=== PATIENT | male | born 1980 | race Two or more races ===

== ENCOUNTER 2019-08-26 22:52 | Inpatient (IN) | payer MEDICAID ==
[~2019-08-26] VITALS: Ht 172.7 cm; Wt 127.0 kg
[2019-08-26 23:36] LABS: Basophils # (auto) 0.1 10 ^3/uL (0-0.2); Basophils % (auto) 0.5 % (0.0-2.0); Eosinophils # (auto) 0 10 ^3/uL (0-0.8); Eosinophils % (auto) 0.1 % (0.0-7.0); Hematocrit 51.8 % (41.0-53.0); Hemoglobin 18.1 g/dL (13.5-17.5); Lymphocytes # (auto) 2.2 10 ^3/uL (0.4-5.4); Lymphocytes % (auto) 14.9 % (10.0-50.0); Mean Corpuscular Hemoglobin 31.4 pg (28.0-32.0); Mean Corpuscular Hgb Conc. 34.9 g/dL (32.0-36.0); Mean Corpuscular Volume 89.8 fL (80.0-100.0); Monocytes # (auto) 1.5 10 ^3/uL (0-1.3); Monocytes % (auto) 10.5 % (0.0-12.0); Neutrophils # (auto) 10.7 10 ^3/uL (1.6-8.6); Nucleated Red Blood Cells % 0.1 %; Platelet Count (auto) 362 10^3/uL (140-450); Red Blood Cells 5.77 10^6/uL (4.5-5.90); Red Cell Distribution Width 13.4 % (11.8-14.3); White Blood Cell 14.5 10^3/uL (4.4-10.8)
[2019-08-26 23:54] LABS: Albumin 4.4 g/dL (3.4-5.0); Anion Gap 16 (5-15); BUN/Creatinine Ratio 17.4; Blood Urea Nitrogen 41 mg/dL (7-18); Calcium 9.7 mg/dL (8.5-10.1); Carbon Dioxide 24 mmol/L (21-32); Chloride 88 mmol/L (98-107); GFR African American 40 mL/min; GFR Non-African American 33 mL/min; Glucose 115 mg/dL (74-106); Potassium 3.6 mmol/L (3.5-5.1); Sodium 128 mmol/L (136-145)
[2019-08-26 23:59] LABS: Alanine Aminotransferase 30 U/L (16-61); Alkaline Phosphatase 128 U/L (45-117); Aspartate Aminotransferase 27 U/L (15-37); Bilirubin, Total 0.5 mg/dL (0.2-1.0); Total Protein 10.2 g/dL (6.4-8.2)
[2019-08-27] MEDS ORDERED: SODIUM CHLORIDE 0.9% 1,000 ML IV ONE
[2019-08-27] MEDS ORDERED: MORPHINE SULFATE 4 MG/ML SYR/VIAL IV ONE (00:15)
[2019-08-27] MEDS ORDERED: ONDANSETRON HCL 4 MG/2 ML VIAL IV ONE (00:15)
[2019-08-27 00:37] LABS: Amylase 54 U/L (25-115); Lipase 67 U/L (73-393)
[2019-08-27] MEDS ORDERED: ACETAMINOPHEN 325 MG TAB PO PRN (05:15)
[2019-08-27] MEDS ORDERED: TEMAZEPAM 15 MG CAP PO PRN (05:15)
[2019-08-27] MEDS ORDERED: MORPHINE SULFATE 4 MG/ML SYR/VIAL IV PRN (05:15)
[2019-08-27] MEDS ORDERED: ONDANSETRON HCL 4 MG/2 ML VIAL IV PRN (05:15)
[2019-08-27] MEDS: SODIUM CHLORIDE 0.9% 1,000 ML IV SCH ×2 (05:21→08:50)
[2019-08-27] MEDS: HYDROcodone-ACET 5/325MG TAB PO PRN ×2 (06:41→11:04)
[2019-08-27] MEDS: metroNIDAZOLE 500MG/100ML 100 ML IV SCH ×2 (07:35→14:00)
[2019-08-27 09:00] VITALS: BP 134/68
[2019-08-27 09:10] LABS: Potassium 3.4 mmol/L (3.5-5.1)
[2019-08-27 09:12] LABS: BUN/Creatinine Ratio 22.9
[2019-08-27] MEDS ORDERED: PANTOPRAZOLE 40 MG TAB PO SCH (10:00)
[2019-08-27] MEDS ORDERED: POTASSIUM CHL 20 Meq TABLET PO ONE (10:30)
[2019-08-27 13:00] VITALS: BP 143/75
[2019-08-27 17:00] VITALS: BP 145/79
[2019-08-30 13:53] LABS: Hepatitis A Ab IgM Negative; Hepatitis C Antibody Negative (Negative)
[2019-08-31 10:02] LABS: Hepatitis B Surface Antigen Negative (Negative)
[2019-08-31 10:11] LABS: Hepatitis B Core IgM Negative
== END 2019-08-27 17:35 | disposition home or self-care (01) | DRG 249 ==
LOC: ER 22:54 → OVERFLOW 22:55 → CENTRAL 08-27 06:00
PROVIDERS: ADMIT Nurse Practitioner; ATTEND Family Medicine
DX: E86.0 Dehydration (principal); N17.9 Acute kidney failure, unspecified; E87.1 Hypo-osmolality and hyponatremia; Z68.41 Body mass index [BMI] 40.0-44.9, adult; K59.00 Constipation, unspecified; K29.00 Acute gastritis without bleeding; K52.9 Noninfective gastroenteritis and colitis, unspecified; K40.90 Unilateral inguinal hernia, without obstruction or gangrene, not specified as recurrent; E66.01 Morbid (severe) obesity due to excess calories; G47.00 Insomnia, unspecified; F12.10 Cannabis abuse, uncomplicated; K76.0 Fatty (change of) liver, not elsewhere classified; Z79.899 Other long term (current) drug therapy
CPT/HCPCS: 36415; 70450; 71045; 74176; 76705; 76775; 80048; 80053; 80074; 82150; 83690; 84484; 85025; 85652; 86703; 93005; G0378; J2405; J3490

== ENCOUNTER 2019-09-04 09:38 | Emergency (ER) | payer SELFPAY ==
[~2019-09-04] VITALS: Ht 172.7 cm; Wt 127.0 kg
[2019-09-04] MEDS ORDERED: SODIUM CHLORIDE 0.9% 1,000 ML IV ONE (10:07)
[2019-09-04] MEDS ORDERED: ONDANSETRON HCL 4 MG/2 ML VIAL IV ONE (10:15)
[2019-09-04 10:36] LABS: Basophils # (auto) 0 10 ^3/uL (0-0.2); Eosinophils # (auto) 0 10 ^3/uL (0-0.8); Hemoglobin 17.8 g/dL (13.5-17.5); Nucleated Red Blood Cells % 0.1 %
[2019-09-04 10:38] LABS: Basophils % (auto) 0.5 % (0.0-2.0); Eosinophils % (auto) 0.4 % (0.0-7.0); Hematocrit 52.4 % (41.0-53.0); Lymphocytes # (auto) 2.3 10 ^3/uL (0.4-5.4); Lymphocytes % (auto) 23.8 % (10.0-50.0); Mean Corpuscular Hemoglobin 30.6 pg (28.0-32.0); Mean Corpuscular Hgb Conc. 34.1 g/dL (32.0-36.0); Mean Corpuscular Volume 89.9 fL (80.0-100.0); Monocytes # (auto) 1.4 10 ^3/uL (0-1.3); Monocytes % (auto) 14.8 % (0.0-12.0); Neutrophils # (auto) 5.8 10 ^3/uL (1.6-8.6); Neutrophils % (auto) 60.5 % (37.0-80.0); Platelet Count (auto) 442 10^3/uL (140-450); Red Blood Cells 5.83 10^6/uL (4.5-5.90); Red Cell Distribution Width 13.3 % (11.8-14.3); White Blood Cell 9.6 10^3/uL (4.4-10.8)
[2019-09-04 10:49] LABS: Calcium 9.8 mg/dL (8.5-10.1)
[2019-09-04 10:55] LABS: BUN/Creatinine Ratio 17.2; Bilirubin, Total 0.6 mg/dL (0.2-1.0); Total Protein 9.7 g/dL (6.4-8.2)
[2019-09-04 11:05] LABS: Potassium 2.9 mmol/L (3.5-5.1)
[2019-09-04] MEDS ORDERED: POTASSIUM EFFERVESENT TAB 25 MEQ PO ONE (11:15)
[2019-09-04 14:37] LABS: Urine Bacteria NONE SEEN /hpf (None Seen); Urine Blood Negative /uL (Negative); Urine Hyaline Cast FEW /lpf (0 - 2); Urine Mucus FEW (None Seen); Urine WBC 11 /hpf (0 - 3)
[2019-09-04 14:52] LABS: Amphetamine Screen, Urine NEGATIVE (NEGATIVE); Barbiturate Scree,Urine NEGATIVE (NEGATIVE); Benzodiazephine Screen, Urine NEGATIVE (NEGATIVE); Cannabinoid Screen, Urine POSITIVE (NEGATIVE); Cocaine Screen, Urine NEGATIVE (NEGATIVE); Opiate Scree,Urine NEGATIVE (NEGATIVE); Phencyclidine Screen, Urine NEGATIVE (NEGATIVE)
[2019-09-04 15:58] VITALS: BP 137/95
== END 2019-09-04 16:12 | disposition home or self-care (01) ==
LOC: ER 09:38
DX: E87.6 Hypokalemia (principal); N18.3 Chronic kidney disease, stage 3 (moderate); E87.1 Hypo-osmolality and hyponatremia; N39.0 Urinary tract infection, site not specified; R53.1 Weakness
CPT/HCPCS: 36415; 71046; 80053; 80307; 81001; 83735; 84443; 85025; 85379; 93005; 96361; 96365; 99285; J7030

== ENCOUNTER 2019-10-02 14:13 | Inpatient (IN) | payer MEDICAID, OTHER ==
[~2019-10-02] VITALS: Ht 170.2 cm; Wt 115.2 kg
[2019-10-02 15:22] LABS: BUN/Creatinine Ratio 8.2; Calcium 8.9 mg/dL (8.5-10.1); Potassium 4.2 mmol/L (3.5-5.1)
[2019-10-02 15:51] LABS: Basophils # (auto) 0.1 10 ^3/uL (0-0.2); Basophils % (auto) 1.1 % (0.0-2.0); Eosinophils # (auto) 0 10 ^3/uL (0-0.8); Eosinophils % (auto) 0.3 % (0.0-7.0); Hematocrit 39.1 % (41.0-53.0); Hemoglobin 12.5 g/dL (13.5-17.5); Lymphocytes % (auto) 24.6 % (10.0-50.0); Mean Corpuscular Hemoglobin 30.2 pg (28.0-32.0); Mean Corpuscular Hgb Conc. 32.1 g/dL (32.0-36.0); Mean Corpuscular Volume 94.3 fL (80.0-100.0); Monocytes # (auto) 0.6 10 ^3/uL (0-1.3); Monocytes % (auto) 7.1 % (0.0-12.0); Neutrophils # (auto) 5.5 10 ^3/uL (1.6-8.6); Neutrophils % (auto) 66.9 % (37.0-80.0); Platelet Count (auto) 290 10^3/uL (140-450); Red Blood Cells 4.15 10^6/uL (4.5-5.90); Red Cell Distribution Width 14.8 % (11.8-14.3); White Blood Cell 8.2 10^3/uL (4.4-10.8)
[2019-10-02 16:58] LABS: Urine Bacteria NONE SEEN /hpf (None Seen); Urine Blood 1+ /uL (Negative); Urine Mucus FEW (None Seen); Urine Specific Gravity 1.012 (1.001-1.035); Urine WBC 2 /hpf (0 - 3)
[2019-10-02 19:32] LABS: Albumin 3.1 g/dL (3.4-5.0); Bilirubin, Total 0.3 mg/dL (0.2-1.0); Total Protein 7.2 g/dL (6.4-8.2)
[2019-10-02] MEDS ORDERED: FUROSEMIDE 20 MG/2 ML VIAL IV ONE (21:45)
[2019-10-02] MEDS ORDERED: TEMAZEPAM 15 MG CAP PO PRN (21:45)
[2019-10-02] MEDS ORDERED: ONDANSETRON HCL 4 MG/2 ML VIAL IV PRN (21:45)
[2019-10-02] MEDS ORDERED: ACETAMINOPHEN 325 MG TAB PO PRN (21:45)
[2019-10-02] MEDS: FAMOTIDINE 20 MG TAB PO SCH (22:00)
[2019-10-02 22:53] LABS: Cholesterol 225 mg/dL (< 200)
[2019-10-02 22:56] LABS: HDL Cholesterol 57 mg/dL (40-59); LDL Cholesterol 165 mg/dL (< 100); Triglycerides 92 mg/dL (< 150)
[2019-10-02 23:00] VITALS: BP 137/87
[2019-10-02 23:40] VITALS: BP 126/78
[2019-10-03 05:00] VITALS: BP 120/77
[2019-10-03 06:04] LABS: Basophils # (auto) 0 10 ^3/uL (0-0.2); Basophils % (auto) 0.6 % (0.0-2.0); Eosinophils # (auto) 0.1 10 ^3/uL (0-0.8); Eosinophils % (auto) 0.8 % (0.0-7.0); Hematocrit 36.7 % (41.0-53.0); Hemoglobin 12.1 g/dL (13.5-17.5); Mean Corpuscular Hemoglobin 31.2 pg (28.0-32.0); Mean Corpuscular Volume 94.5 fL (80.0-100.0); Monocytes # (auto) 0.6 10 ^3/uL (0-1.3); Neutrophils # (auto) 4.1 10 ^3/uL (1.6-8.6); Neutrophils % (auto) 60.6 % (37.0-80.0); Nucleated Red Blood Cells % 0.1 %; Platelet Count (auto) 258 10^3/uL (140-450); Red Blood Cells 3.89 10^6/uL (4.5-5.90); Red Cell Distribution Width 14.7 % (11.8-14.3); White Blood Cell 6.8 10^3/uL (4.4-10.8)
[2019-10-03 06:26] LABS: Potassium 3.8 mmol/L (3.5-5.1)
[2019-10-03 06:30] LABS: BUN/Creatinine Ratio 5.8; Calcium 8.5 mg/dL (8.5-10.1)
[2019-10-03 08:53] VITALS: BP 122/78
[2019-10-03] MEDS: ASPirin 81 mg TAB PO SCH (10:00)
[2019-10-03] MEDS: FAMOTIDINE 20 MG TAB PO SCH ×2 (10:01→23:09)
[2019-10-03] MEDS: FUROSEMIDE 20 MG TAB PO SCH (10:01)
[2019-10-03 12:36] VITALS: BP 134/92
[2019-10-03 16:52] VITALS: BP 128/83
[2019-10-03 22:35] VITALS: BP 138/87
[2019-10-03] MEDS: ATORVASTATIN 20 MG TAB PO SCH (23:09)
[2019-10-04 05:21] VITALS: BP 131/80
[2019-10-04 06:10] LABS: Basophils # (auto) 0.1 10 ^3/uL (0-0.2); Basophils % (auto) 0.8 % (0.0-2.0); Eosinophils # (auto) 0.1 10 ^3/uL (0-0.8); Hematocrit 38.5 % (41.0-53.0); Hemoglobin 12.9 g/dL (13.5-17.5); Lymphocytes # (auto) 1.8 10 ^3/uL (0.4-5.4); Lymphocytes % (auto) 27.4 % (10.0-50.0); Mean Corpuscular Hemoglobin 31.3 pg (28.0-32.0); Mean Corpuscular Hgb Conc. 33.5 g/dL (32.0-36.0); Mean Corpuscular Volume 93.5 fL (80.0-100.0); Monocytes # (auto) 0.6 10 ^3/uL (0-1.3); Monocytes % (auto) 8.6 % (0.0-12.0); Neutrophils # (auto) 4.1 10 ^3/uL (1.6-8.6); Neutrophils % (auto) 62.2 % (37.0-80.0); Platelet Count (auto) 252 10^3/uL (140-450); Red Blood Cells 4.12 10^6/uL (4.5-5.90); Red Cell Distribution Width 14.3 % (11.8-14.3); White Blood Cell 6.5 10^3/uL (4.4-10.8)
[2019-10-04 06:30] LABS: Anion Gap 5 (5-15); Calcium 8.4 mg/dL (8.5-10.1); Carbon Dioxide 26 mmol/L (21-32); Chloride 108 mmol/L (98-107); Glucose 87 mg/dL (74-106); Potassium 3.8 mmol/L (3.5-5.1); Sodium 139 mmol/L (136-145)
[2019-10-04 06:35] LABS: BUN/Creatinine Ratio 10.4; Blood Urea Nitrogen 8 mg/dL (7-18); GFR African American 145 mL/min; GFR Non-African American 120 mL/min
[2019-10-04 09:00] VITALS: BP 133/89
[2019-10-04] MEDS: ASPirin 81 mg TAB PO SCH (09:12)
[2019-10-04] MEDS: FUROSEMIDE 20 MG TAB PO SCH (09:13)
[2019-10-04] MEDS: FAMOTIDINE 20 MG TAB PO SCH ×2 (09:13→21:28)
[2019-10-04 13:00] VITALS: BP 135/87
[2019-10-04 17:00] VITALS: BP 126/88
[2019-10-04] MEDS: ATORVASTATIN 20 MG TAB PO SCH (21:28)
[2019-10-04 23:32] VITALS: BP 139/93
[2019-10-05 05:23] VITALS: BP 121/75
[2019-10-05 06:30] LABS: Basophils # (auto) 0 10 ^3/uL (0-0.2); Basophils % (auto) 0.5 % (0.0-2.0); Eosinophils # (auto) 0 10 ^3/uL (0-0.8); Eosinophils % (auto) 0.7 % (0.0-7.0); Lymphocytes # (auto) 1.9 10 ^3/uL (0.4-5.4); Lymphocytes % (auto) 26.9 % (10.0-50.0); Mean Corpuscular Hemoglobin 31.3 pg (28.0-32.0); Mean Corpuscular Hgb Conc. 33.3 g/dL (32.0-36.0); Monocytes # (auto) 0.7 10 ^3/uL (0-1.3); Monocytes % (auto) 9.9 % (0.0-12.0); Neutrophils # (auto) 4.3 10 ^3/uL (1.6-8.6); Nucleated Red Blood Cells % 0.1 %; Platelet Count (auto) 283 10^3/uL (140-450); Red Blood Cells 4.47 10^6/uL (4.5-5.90); Red Cell Distribution Width 14.5 % (11.8-14.3); White Blood Cell 6.9 10^3/uL (4.4-10.8)
[2019-10-05 06:38] LABS: BUN/Creatinine Ratio 12.2
[2019-10-05 08:51] VITALS: BP 128/83
[2019-10-05] MEDS: ASPirin 81 mg TAB PO SCH (10:01)
[2019-10-05] MEDS: FAMOTIDINE 20 MG TAB PO SCH (10:01)
[2019-10-05] MEDS: FUROSEMIDE 20 MG TAB PO SCH (10:02)
[2019-10-05 12:37] VITALS: BP 129/88
[2019-10-05 16:55] VITALS: BP 123/83
[2019-10-05 17:07] VITALS: BP 123/83
== END 2019-10-05 18:20 | disposition home or self-care (01) | DRG 194 ==
LOC: ER 14:13 → TELE 14:14 → TELE-WESTW 23:09
PROVIDERS: ADMIT Nurse Practitioner; ATTEND Internal Medicine
DX: I50.31 Acute diastolic (congestive) heart failure (principal); E44.0 Moderate protein-calorie malnutrition; E66.01 Morbid (severe) obesity due to excess calories; E78.00 Pure hypercholesterolemia, unspecified; E78.5 Hyperlipidemia, unspecified; D63.8 Anemia in other chronic diseases classified elsewhere; Z83.0 Family history of human immunodeficiency virus [HIV] disease; Z91.81 History of falling; Z68.41 Body mass index [BMI] 40.0-44.9, adult
CPT/HCPCS: 36415; 70450; 71046; 80048; 80053; 80061; 81001; 83880; 84443; 84484; 85025; 87081; 93005; 93306; 93970; 96374; G0378

== ENCOUNTER 2019-11-23 13:02 | Inpatient (IN) | payer MEDICAID ==
[~2019-11-23] VITALS: Ht 172.7 cm; Wt 117.6 kg
[2019-11-23 13:47] LABS: Eosinophils # (auto) 0 10 ^3/uL (0-0.8); Lymphocytes # (auto) 2.6 10 ^3/uL (0.4-5.4); Mean Corpuscular Volume 94.9 fL (80.0-100.0)
[2019-11-23 13:49] LABS: Basophils # (auto) 0.1 10 ^3/uL (0-0.2); Basophils % (auto) 0.6 % (0.0-2.0); Eosinophils % (auto) 0.1 % (0.0-7.0); Hematocrit 53.7 % (41.0-53.0); Hemoglobin 17.7 g/dL (13.5-17.5); Lymphocytes % (auto) 20.8 % (10.0-50.0); Mean Corpuscular Hemoglobin 31.3 pg (28.0-32.0); Monocytes # (auto) 1.4 10 ^3/uL (0-1.3); Monocytes % (auto) 11.2 % (0.0-12.0); Neutrophils # (auto) 8.5 10 ^3/uL (1.6-8.6); Neutrophils % (auto) 67.3 % (37.0-80.0); Platelet Count (auto) 423 10^3/uL (140-450); Red Blood Cells 5.66 10^6/uL (4.5-5.90); Red Cell Distribution Width 14.2 % (11.8-14.3); White Blood Cell 12.6 10^3/uL (4.4-10.8)
[2019-11-23 14:12] LABS: Albumin 4.5 g/dL (3.4-5.0); Anion Gap 9 (5-15); Blood Urea Nitrogen 25 mg/dL (7-18); Calcium 9.8 mg/dL (8.5-10.1); Carbon Dioxide 28 mmol/L (21-32); Chloride 95 mmol/L (98-107); Glucose 110 mg/dL (74-106); Potassium 3.4 mmol/L (3.5-5.1); Sodium 132 mmol/L (136-145)
[2019-11-23 14:18] LABS: Alanine Aminotransferase 25 U/L (16-61); Alkaline Phosphatase 119 U/L (45-117); Aspartate Aminotransferase 18 U/L (15-37); BUN/Creatinine Ratio 12.4; Bilirubin, Total 0.6 mg/dL (0.2-1.0); GFR African American 48 mL/min; GFR Non-African American 39 mL/min; Total Protein 9.8 g/dL (6.4-8.2)
[2019-11-23] MEDS ORDERED: ONDANSETRON HCL 4 MG/2 ML VIAL ONE (16:06)
[2019-11-23] MEDS ORDERED: ASPirin-EC 81 mg tab PO ONE (16:07)
[2019-11-23] MEDS ORDERED: ASPirin 81 mg TAB PO ONE (16:15)
[2019-11-23] MEDS ORDERED: ONDANSETRON HCL 4 MG/2 ML VIAL IV ONE (16:15)
[2019-11-23] MEDS ORDERED: NITROGLYCERIN 0.4 MG SL TAB SL ONE (16:15)
[2019-11-23] MEDS ORDERED: PROMETHAZINE HCL 25 MG/ML 1ML ONE (17:06)
[2019-11-23] MEDS ORDERED: PROMETHAZINE HCL 25 MG/ML 1ML IV ONE (17:15)
[2019-11-23] MEDS ORDERED: PANTOPRAZOLE 40 MG/10 ML VIAL INJ IV ONE (17:15)
[2019-11-23] MEDS ORDERED: NITROGLYCERIN 0.4 MG SL TAB SL PRN ×2 (18:15→19:45)
[2019-11-23] MEDS ORDERED: MORPHINE SULF INJ 2 MG/ML SYRINGE 1ML IV PRN ×2 (18:15→19:45)
[2019-11-23] MEDS ORDERED: SODIUM CHLORIDE 0.9% 1,000 ML IV SCH (19:38)
[2019-11-23] MEDS ORDERED: ACETAMINOPHEN 325 MG TAB PO PRN (19:45)
[2019-11-23] MEDS ORDERED: DOCUSATE SOD 100 MG CAP PO PRN (19:45)
[2019-11-23] MEDS ORDERED: ALUM & MAG HYDROX-SIMETH LIQ(MAALOX) 30 ML PO PRN (19:45)
[2019-11-23] MEDS ORDERED: HYDROcodone-ACET 5/325MG TAB PO PRN (19:45)
[2019-11-23] MEDS ORDERED: FUROSEMIDE 20 MG/2 ML VIAL IV ONE (20:00)
--- NOTE | 2019-11-23 20:05 | NUR ---
Telemetry admit from ER RAVIROBIN HEIN admitted to Telemetry unit; no SBAR received. Patient oriented by ANDERSON SCOTT, primary RN, to unit, room, bed, and unit policies regarding patient care and visiting hours. Patient now on continuous telemetry monitoring, tele box #52 and telemetry reading on arrival to unit is 110. Patient placed on bedside oxygen, weighed by bedscale and encouraged to call if he needs something. All questions and concerns addressed, patient verbalized understanding. Pain is 8/20 described as burning in chest and abd as has been all day. Able to ZABALA. Bed low; nurse call light within pt's reach.
[2019-11-23] MEDS: ENOXAPARIN SOD 40 MG/0.4 ML SYRINGE SC SCH (20:14)
[2019-11-23] MEDS: ONDANSETRON HCL 4 MG/2 ML VIAL IV PRN (20:40)
[2019-11-23] MEDS: MORPHINE SULF INJ 2 MG/ML SYRINGE 1ML IV PRN (20:45)
[2019-11-23] MEDS: SOD CHL 0.9%/ KCL 20MEQ 1,000 ML IV SCH (21:45)
[2019-11-23 22:00] VITALS: BP 142/99
[2019-11-23] MEDS: dilTIAZem HCL 60 MG TAB PO SCH (22:00)
[2019-11-23] MEDS: FAMOTIDINE (10MG/ML) 2ML VL IV SCH (22:00)
[2019-11-23] MEDS: ATORVASTATIN 20 MG TAB PO SCH (22:00)
[2019-11-23 22:28] LABS: Cholesterol 186 mg/dL (< 200); HDL Cholesterol 53 mg/dL (40-59); LDL Cholesterol 127 mg/dL (< 100); Triglycerides 114 mg/dL (< 150)
[2019-11-24 00:09] VITALS: BP 131/92
[2019-11-24] MEDS: ONDANSETRON HCL 4 MG/2 ML VIAL IV PRN ×2 (00:42→05:50)
[2019-11-24 05:04] VITALS: BP 145/95
[2019-11-24] MEDS: FUROSEMIDE 20 MG/2 ML VIAL IV SCH ×2 (06:00→17:20)
[2019-11-24] MEDS: ISOSORBIDE DINITRATE 10 MG TAB PO SCH ×3 (06:00→17:23)
[2019-11-24] MEDS: dilTIAZem HCL 60 MG TAB PO SCH ×3 (06:00→21:54)
[2019-11-24 06:18] LABS: Basophils # (auto) 0 10 ^3/uL (0-0.2); Basophils % (auto) 0.3 % (0.0-2.0); Eosinophils # (auto) 0 10 ^3/uL (0-0.8); Hematocrit 53.4 % (41.0-53.0); Hemoglobin 17.7 g/dL (13.5-17.5); Lymphocytes # (auto) 1.6 10 ^3/uL (0.4-5.4); Lymphocytes % (auto) 14.3 % (10.0-50.0); Mean Corpuscular Hemoglobin 31.3 pg (28.0-32.0); Mean Corpuscular Hgb Conc. 33.1 g/dL (32.0-36.0); Mean Corpuscular Volume 94.5 fL (80.0-100.0); Monocytes # (auto) 1.3 10 ^3/uL (0-1.3); Monocytes % (auto) 11.5 % (0.0-12.0); Neutrophils % (auto) 73.9 % (37.0-80.0); Nucleated Red Blood Cells % 0.3 %; Platelet Count (auto) 373 10^3/uL (140-450); Red Blood Cells 5.65 10^6/uL (4.5-5.90); Red Cell Distribution Width 14.3 % (11.8-14.3); White Blood Cell 10.9 10^3/uL (4.4-10.8)
[2019-11-24 06:38] LABS: INR 1.01 (0.9-1.15); Partial Thromboplastin Time 29.5 sec (23.64-32.05)
[2019-11-24 06:40] LABS: Chloride 98 mmol/L (98-107); Potassium 3.1 mmol/L (3.5-5.1); Sodium 134 mmol/L (136-145)
[2019-11-24 06:47] LABS: Alanine Aminotransferase 24 U/L (16-61); Albumin 4.1 g/dL (3.4-5.0); Alkaline Phosphatase 115 U/L (45-117); Anion Gap 8 (5-15); Aspartate Aminotransferase 16 U/L (15-37); BUN/Creatinine Ratio 17.1; Bilirubin, Total 0.7 mg/dL (0.2-1.0); Blood Urea Nitrogen 25 mg/dL (7-18); CRP High Sensitivity 0.27 mg/dL (< 0.3); Calcium 9.5 mg/dL (8.5-10.1); Carbon Dioxide 28 mmol/L (21-32); GFR African American 69 mL/min; GFR Non-African American 57 mL/min; Glucose 114 mg/dL (74-106); Magnesium 2.5 mg/dL (1.6-2.6); Phosphorus 4.7 mg/dL (2.5-4.90); Total Protein 9.4 g/dL (6.4-8.2); Uric Acid 10.8 mg/dL (3.5-7.2)
--- NOTE | 2019-11-24 07:30 | NUR ---
Opening Shift Note Assumed care of patient, awake and alert. No S/S of distress/SOB or pain. Bed is locked and in lowest position and call light is within reach. Instructed on POC and to call for assist PRN, and patient verbalized understanding. Will continue to monitor for changes Q1hr and PRN.
[2019-11-24] MEDS: SOD CHL 0.9%/ KCL 20MEQ 1,000 ML IV SCH ×2 (07:45→17:20)
[2019-11-24] MEDS: FAMOTIDINE (10MG/ML) 2ML VL IV SCH ×2 (08:59→21:45)
[2019-11-24 10:00] VITALS: BP 133/72
[2019-11-24] MEDS: SUCRALFATE 1 GM/10 ML ORAL SUSP PO SCH ×3 (11:30→21:48)
[2019-11-24 13:00] VITALS: BP 136/82
[2019-11-24] MEDS: MORPHINE SULF INJ 2 MG/ML SYRINGE 1ML IV PRN (15:30)
[2019-11-24 16:58] VITALS: BP 117/79
[2019-11-24] MEDS: ENOXAPARIN SOD 40 MG/0.4 ML SYRINGE SC SCH (17:23)
--- NOTE | 2019-11-24 19:00 | NUR ---
Endorsed care to JOSEE BERRY, Alice.
--- NOTE | 2019-11-24 19:30 | NUR ---
Opening Shift Note Assumed care of patient, awake and alert but resting quietly in bed in low position. HOB in semi-Alvarenga's Nurse call light within pt reach. No S/S of distress/SOB or pain. Instructed on POC and to call for assist PRN, will continue to monitor for changes Q1hr and PRN.
[2019-11-24] MEDS: ATORVASTATIN 20 MG TAB PO SCH (21:55)
[2019-11-24] MEDS: LORazepam 0.5 MG TAB PO PRN ×2 (21:56)
[2019-11-24 22:07] VITALS: BP 117/82
--- NOTE | 2019-11-24 22:25 | NUR ---
Pt talking with this RN re. hopes to learn what is causing his pain and nausea and in getting tx/cure started or accomplished. Pt speaks of missing 3 mo. old girl, his first born.
[2019-11-25 05:00] VITALS: BP 135/91
[2019-11-25 06:09] LABS: Calcium 9.2 mg/dL (8.5-10.1)
[2019-11-25 06:14] LABS: Potassium 2.7 mmol/L (3.5-5.1)
--- NOTE | 2019-11-25 06:21 | NUR ---
0600 critical potassium result received via Nidhi Castelan, lab; potassium level 2.7. Hospitalist paged. electrolog operator not answering until 3rd call with extensive ringing, > 10 rings.
[2019-11-25] MEDS: dilTIAZem HCL 60 MG TAB PO SCH ×3 (06:27→21:38)
[2019-11-25] MEDS: SUCRALFATE 1 GM/10 ML ORAL SUSP PO SCH ×4 (06:28→21:38)
[2019-11-25] MEDS: ISOSORBIDE DINITRATE 10 MG TAB PO SCH ×3 (06:28→17:36)
[2019-11-25] MEDS: ONDANSETRON HCL 4 MG/2 ML VIAL IV PRN (06:39)
--- NOTE | 2019-11-25 07:10 | NUR ---
No answer from paging hospitalist; endorsing to day RN.
--- NOTE | 2019-11-25 07:30 | NUR ---
Opening Shift Note Assumed care of patient, awake and alert. No S/S of distress/SOB or pain. Instructed on POC and to call for assist PRN, and patient verbalized understanding. Will continue to monitor for changes Q1hr and PRN.
[2019-11-25 09:00] VITALS: BP 141/78
[2019-11-25] MEDS: FAMOTIDINE (10MG/ML) 2ML VL IV SCH ×2 (10:00→21:39)
--- NOTE | 2019-11-25 10:00 | NUR ---
Dr. René Serrano, Coordinator [employer], cleared patient for EGD procedure tomorrow morning.
[2019-11-25] MEDS: MORPHINE SULF INJ 2 MG/ML SYRINGE 1ML IV PRN (13:03)
[2019-11-25 13:11] VITALS: BP 136/72
[2019-11-25 16:32] VITALS: BP 141/87
[2019-11-25] MEDS ORDERED: POTASSIUM EFFERVESENT TAB 25 MEQ PO ONE (17:30)
[2019-11-25] MEDS ORDERED: POTASSIUM CHL 20 Meq TABLET PO ONE (17:30)
[2019-11-25] MEDS: ENOXAPARIN SOD 40 MG/0.4 ML SYRINGE SC SCH (17:36)
--- NOTE | 2019-11-25 19:35 | NUR ---
Opening Shift Note Assumed care of patient, awake and alert. No S/S of distress/SOB noted. Instructed on POC and to call for assist PRN, and patient verbalized understanding. Bed is in lowest locked position with bed rails up x2 and call light is within reach of the patient.
[2019-11-25] MEDS: LORazepam 0.5 MG TAB PO PRN (20:16)
[2019-11-25] MEDS: ATORVASTATIN 20 MG TAB PO SCH (21:38)
[2019-11-25 22:00] VITALS: BP 130/86
[2019-11-25 22:48] LABS: Urine Bacteria NONE SEEN /hpf (None Seen); Urine Blood Negative /uL (Negative); Urine Mucus FEW (None Seen); Urine Specific Gravity 1.029 (1.001-1.035); Urine WBC 9 /hpf (0 - 3)
[2019-11-25 22:53] LABS: Alcohol, Urine < 3.0 mg/dL (0-10); Amphetamine Screen, Urine NEGATIVE (NEGATIVE); Barbiturate Scree,Urine NEGATIVE (NEGATIVE); Benzodiazephine Screen, Urine NEGATIVE (NEGATIVE); Cannabinoid Screen, Urine POSITIVE (NEGATIVE); Cocaine Screen, Urine NEGATIVE (NEGATIVE); Opiate Scree,Urine POSITIVE (NEGATIVE); Phencyclidine Screen, Urine NEGATIVE (NEGATIVE)
--- NOTE | 2019-11-26 04:20 | NUR ---
RECEIVED REPORT ON PATIENT AT 0412. PATIENT SCHEDULED FOR EGD TODAY. CONSENT SIGNED AND PREOP CHECK LIST COMPLETED ALL ON FILE PATIENT SLEEPING AT THIS TIME.
--- NOTE | 2019-11-26 04:34 | NUR ---
Report given and care endorsed to Andrew TRIPP.
[2019-11-26 05:00] VITALS: BP 136/87
[2019-11-26] MEDS: ISOSORBIDE DINITRATE 10 MG TAB PO SCH ×3 (05:33→17:45)
[2019-11-26] MEDS: dilTIAZem HCL 60 MG TAB PO SCH ×3 (05:33→21:36)
[2019-11-26] MEDS: SUCRALFATE 1 GM/10 ML ORAL SUSP PO SCH ×4 (05:34→21:35)
[2019-11-26 06:25] LABS: BUN/Creatinine Ratio 18.7
[2019-11-26 06:30] LABS: Potassium 2.9 mmol/L (3.5-5.1)
--- NOTE | 2019-11-26 06:36 | NUR ---
0630. CRITICAL LAB VALUE CALLED: POTASSIUM 2.9. HOSPITALIST PAGED. HOSPITALIST CALLED BACK AND ORDERED POTASSIUM CHLORIDE 40MEQ PO ONE DOSE.
[2019-11-26] MEDS ORDERED: POTASSIUM CHL 20 Meq TABLET PO ONE ×2 (06:45→09:30)
--- NOTE | 2019-11-26 07:00 | NUR ---
Opening Shift Note Received report on the patient. Awake lying in bed. Patient shows no signs of distress at this time. Discussed plan of care with the patient. Bed in lowest position, side rails up x2, and call light is within reach.
[2019-11-26 09:00] VITALS: BP 125/84
[2019-11-26] MEDS ORDERED: LIDOCAINE VISCOUS 2% 15ML UD ONE (09:13)
[2019-11-26] MEDS ORDERED: SODIUM CHLORIDE LOCK 10 ML ONE (09:13)
[2019-11-26] MEDS ORDERED: POTASSIUM EFFERVESENT TAB 25 MEQ PO ONE (09:30)
[2019-11-26] MEDS: FAMOTIDINE (10MG/ML) 2ML VL IV SCH ×2 (10:00→21:35)
--- NOTE | 2019-11-26 11:51 | NUR ---
Dr Lemos at bedside. No new orders.
[2019-11-26 12:58] VITALS: BP 137/90
--- NOTE | 2019-11-26 13:41 | NUR ---
Patient down to OR. No signs of distress at this time.
[2019-11-26] MEDS: MIDAZOLAM HCL 5 MG/ML-1ML VIAL ONE ×4 (15:08→15:17)
[2019-11-26] MEDS: fentaNYL CITRATE 100 MCG/2 ML VL ONE ×3 (15:08→15:13)
[2019-11-26] MEDS: diphenhdrAMINE HCL 50 MG/1 ML VL ONE ×2 (15:10→15:12)
--- NOTE | 2019-11-26 16:04 | NUR ---
Patient back from OR. Patient A&O 4. Patient shows no signs of distress at this time.
[2019-11-26 16:29] VITALS: BP 136/70
[2019-11-26] MEDS: ENOXAPARIN SOD 40 MG/0.4 ML SYRINGE SC SCH (17:45)
--- NOTE | 2019-11-26 19:17 | NUR ---
Opening Shift Note Assumed care of patient after receiving report from jada Hartmann RN. Patient awake and alert with no S/S of distress/SOB or pain, patient breathing comfortably on RA. Call light within reach, bed in lowest position x2 side rails up, HOB semi fowlers. Instructed on POC and to call for assist PRN, will continue to monitor for changes Q1hr and PRN.
[2019-11-26 21:25] VITALS: BP 126/80
[2019-11-26] MEDS: ATORVASTATIN 20 MG TAB PO SCH (21:36)
[2019-11-26] MEDS: LORazepam 0.5 MG TAB PO PRN (21:36)
[2019-11-27 05:06] VITALS: BP 119/73
[2019-11-27 05:11] LABS: Basophils # (auto) 0 10 ^3/uL (0-0.2); Basophils % (auto) 0.4 % (0.0-2.0); Eosinophils # (auto) 0 10 ^3/uL (0-0.8); Eosinophils % (auto) 0.4 % (0.0-7.0); Hematocrit 46.5 % (41.0-53.0); Hemoglobin 15.6 g/dL (13.5-17.5); Lymphocytes # (auto) 2.3 10 ^3/uL (0.4-5.4); Lymphocytes % (auto) 24.5 % (10.0-50.0); Mean Corpuscular Hemoglobin 32.1 pg (28.0-32.0); Mean Corpuscular Hgb Conc. 33.6 g/dL (32.0-36.0); Mean Corpuscular Volume 95.7 fL (80.0-100.0); Monocytes # (auto) 1.1 10 ^3/uL (0-1.3); Monocytes % (auto) 12.2 % (0.0-12.0); Neutrophils # (auto) 5.8 10 ^3/uL (1.6-8.6); Neutrophils % (auto) 62.5 % (37.0-80.0); Nucleated Red Blood Cells % 0.2 %; Platelet Count (auto) 306 10^3/uL (140-450); Red Blood Cells 4.86 10^6/uL (4.5-5.90); Red Cell Distribution Width 13.8 % (11.8-14.3); White Blood Cell 9.3 10^3/uL (4.4-10.8)
[2019-11-27 05:27] LABS: Potassium 3.9 mmol/L (3.5-5.1)
[2019-11-27 05:34] LABS: BUN/Creatinine Ratio 15.9; Calcium 9.2 mg/dL (8.5-10.1)
[2019-11-27] MEDS: SUCRALFATE 1 GM/10 ML ORAL SUSP PO SCH ×2 (06:07→10:49)
[2019-11-27] MEDS: ISOSORBIDE DINITRATE 10 MG TAB PO SCH ×2 (06:07→12:00)
[2019-11-27] MEDS: dilTIAZem HCL 60 MG TAB PO SCH ×2 (06:07→14:08)
[2019-11-27 09:00] VITALS: BP 131/74
[2019-11-27] MEDS: FAMOTIDINE (10MG/ML) 2ML VL IV SCH (10:45)
[2019-11-27 13:00] VITALS: BP 124/72
[2019-11-27] MEDS ORDERED: SUCR1TAB22 PO (13:33)
[2019-11-27] MEDS ORDERED: PANT40TA2 PO (13:33)
[2019-11-27] MEDS ORDERED: AMOX500T86 PO (13:34)
[2019-11-27] MEDS ORDERED: METO25TA36 PO (13:35)
[2019-11-27] MEDS ORDERED: LOSA25TA38 PO (13:35)
[2019-11-27 14:32] VITALS: BP 124/72
== END 2019-11-27 15:54 | disposition home or self-care (01) | DRG 243 ==
LOC: ER 13:02 → TELE 13:03 → TELE-WESTW 20:07
PROVIDERS: ADMIT Hospitalist; ATTEND Internal Medicine Nephrology
PROC: 0DB88ZX Excision of Small Intestine, Via Natural or Artificial Opening Endoscopic, Diagnostic (ICD-10-PCS; 2019-11-26)
PROC: 0DB68ZX Excision of Stomach, Via Natural or Artificial Opening Endoscopic, Diagnostic (ICD-10-PCS; 2019-11-26)
PROC: 0DB58ZX Excision of Esophagus, Via Natural or Artificial Opening Endoscopic, Diagnostic (ICD-10-PCS; principal; 2019-11-26 15:01)
DX: K22.10 Ulcer of esophagus without bleeding (principal); E66.01 Morbid (severe) obesity due to excess calories; D72.829 Elevated white blood cell count, unspecified; N18.3 Chronic kidney disease, stage 3 (moderate); N17.0 Acute kidney failure with tubular necrosis; K29.20 Alcoholic gastritis without bleeding; E87.1 Hypo-osmolality and hyponatremia; E87.6 Hypokalemia; E88.81 Metabolic syndrome and other insulin resistance; K44.9 Diaphragmatic hernia without obstruction or gangrene; K21.0 Gastro-esophageal reflux disease with esophagitis; E78.5 Hyperlipidemia, unspecified; I24.9 Acute ischemic heart disease, unspecified; K21.9 Gastro-esophageal reflux disease without esophagitis; R13.10 Dysphagia, unspecified; I42.2 Other hypertrophic cardiomyopathy; I13.0 Hypertensive heart and chronic kidney disease with heart failure and stage 1 through stage 4 chronic kidney disease, or unspecified chronic kidney disease; Z83.0 Family history of human immunodeficiency virus [HIV] disease; I50.9 Heart failure, unspecified; Z68.36 Body mass index [BMI] 36.0-36.9, adult; D75.1 Secondary polycythemia; Z91.19 Patient's noncompliance with other medical treatment and regimen; F10.10 Alcohol abuse, uncomplicated
CPT/HCPCS: 36415; 43239; 71046; 80048; 80053; 80061; 80307; 81001; 83036; 83735; 83880; 84100; 84132; 84443; 84484; 84550; 85025; 85379; 85610; 85652; 85730; 86141; 87040; 87086; 93005; 96374; 96375; C9113; G0378; J2250; J2405; J3490

== ENCOUNTER 2019-12-08 17:15 | Inpatient (IN) | payer MEDICAID ==
[~2019-12-08] VITALS: Ht 208.3 cm; Wt 110.6 kg
[~2019-12-08 17:15] MED LIST: AMOX500T86 PO; LOSA25TA38 PO; METO25TA36 PO; PANT40TA2 PO; SUCR1TAB38 PO
[2019-12-08 21:09] LABS: White Blood Cell 7.5 10^3/uL (4.4-10.8)
[2019-12-08 21:11] LABS: Hematocrit 53.3 % (41.0-53.0); Hemoglobin 18.3 g/dL (13.5-17.5); Mean Corpuscular Hemoglobin 31.4 pg (28.0-32.0); Mean Corpuscular Hgb Conc. 34.4 g/dL (32.0-36.0); Mean Corpuscular Volume 91.4 fL (80.0-100.0); Platelet Count (auto) 389 10^3/uL (140-450); Red Blood Cells 5.83 10^6/uL (4.5-5.90); Red Cell Distribution Width 13.3 % (11.8-14.3)
[2019-12-08 21:13] LABS: Basophils % (manual) 0 (0.0-2.0); Blast Cells 0; Eosinophils % (manual) 0 (0-7); Myelocytes % 0; Promyelocytes % 0
[2019-12-08 21:27] LABS: Alanine Aminotransferase 23 U/L (16-61); Albumin 3.7 g/dL (3.4-5.0); Anion Gap 15 (5-15); Aspartate Aminotransferase 12 U/L (15-37); BUN/Creatinine Ratio 27.5; Calcium 9.6 mg/dL (8.5-10.1); Carbon Dioxide 23 mmol/L (21-32); Chloride 83 mmol/L (98-107); GFR African American 28 mL/min; GFR Non-African American 23 mL/min; Glucose 100 mg/dL (74-106); INR 1.07 (0.9-1.15); Partial Thromboplastin Time 37.1 sec (23.64-32.05); Potassium 3.1 mmol/L (3.5-5.1); Sodium 121 mmol/L (136-145)
[2019-12-08 21:32] LABS: Alkaline Phosphatase 114 U/L (45-117); Bilirubin, Total 0.3 mg/dL (0.2-1.0); Total Protein 9.1 g/dL (6.4-8.2)
[2019-12-08 21:35] LABS: Blood Urea Nitrogen 89 mg/dL (7-18)
[2019-12-08 22:03] LABS: Band Neutrophils % (manual) 14; Lymphocytes % (manual) 18 (10.0-50.0); Monocytes % (manual) 15 (0-12)
[2019-12-08 22:04] LABS: Metamyelocytes % 2; Reactive Lymphocytes 1
[2019-12-08 22:13] LABS: Urine Bacteria FEW /hpf (None Seen); Urine Blood Negative /uL (Negative); Urine Hyaline Cast FEW /lpf (0 - 2); Urine WBC 6 /hpf (0 - 3)
[2019-12-08 22:25] LABS: Alcohol, Urine < 3.0 mg/dL (0-10); Amphetamine Screen, Urine NEGATIVE (NEGATIVE); Barbiturate Scree,Urine NEGATIVE (NEGATIVE); Benzodiazephine Screen, Urine NEGATIVE (NEGATIVE); Cannabinoid Screen, Urine POSITIVE (NEGATIVE); Cocaine Screen, Urine NEGATIVE (NEGATIVE); Opiate Scree,Urine NEGATIVE (NEGATIVE); Phencyclidine Screen, Urine NEGATIVE (NEGATIVE)
[2019-12-08] MEDS ORDERED: POTASSIUM CHL 20 Meq TABLET PO ONE (23:15)
[2019-12-08] MEDS ORDERED: ONDANSETRON HCL 4 MG/2 ML VIAL IV PRN (23:15)
[2019-12-08] MEDS ORDERED: SODIUM CHLORIDE 0.9% 1,000 ML IV ONE (23:15)
[2019-12-08] MEDS ORDERED: TEMAZEPAM 15 MG CAP PO PRN (23:15)
[2019-12-09] MEDS ORDERED: MORPHINE SULF INJ 2 MG/ML SYRINGE 1ML IV PRN (00:45)
[2019-12-09] MEDS ORDERED: NITROGLYCERIN 0.4 MG SL TAB SL PRN (00:45)
[2019-12-09 01:36] LABS: Hematocrit 49.8 % (41.0-53.0); Hemoglobin 17.1 g/dL (13.5-17.5); Mean Corpuscular Hemoglobin 31.4 pg (28.0-32.0); Mean Corpuscular Hgb Conc. 34.3 g/dL (32.0-36.0); Mean Corpuscular Volume 91.4 fL (80.0-100.0); Platelet Count (auto) 344 10^3/uL (140-450); Red Blood Cells 5.45 10^6/uL (4.5-5.90); Red Cell Distribution Width 13.5 % (11.8-14.3); White Blood Cell 7.2 10^3/uL (4.4-10.8)
[2019-12-09 01:51] LABS: Basophils % (manual) 0 (0.0-2.0); Blast Cells 0; Myelocytes % 0; Promyelocytes % 0
[2019-12-09 01:54] LABS: BUN/Creatinine Ratio 29.3; Calcium 8.9 mg/dL (8.5-10.1); Potassium 3.2 mmol/L (3.5-5.1)
[2019-12-09 02:15] VITALS: BP 99/70
--- NOTE | 2019-12-09 02:15 | NUR ---
Telemetry admit from ER RAVIROBIN HEIN admitted to Telemetry unit after SBAR received. Patient oriented to SEBAS GRAHAM RN primary RN, unit, room, bed, and unit policies regarding patient care and visiting hours. Patient now on continuous telemetry monitoring, tele box # 25 and telemetry reading on arrival to unit is SR 90s to ST 100s. Patient placed on bedside oxygen, weighed by bedscale and encouraged to call if they need something. All questions and concerns addressed, patient verbalized understanding. Note:
[2019-12-09] MEDS ORDERED: FURO1TAB33 PO (02:45)
[2019-12-09] MEDS ORDERED: POTA10TA51 PO (02:45)
[2019-12-09 03:27] LABS: Band Neutrophils % (manual) 12; Eosinophils % (manual) 1 (0-7); Lymphocytes % (manual) 30 (10.0-50.0); Metamyelocytes % 1; Monocytes % (manual) 12 (0-12); Reactive Lymphocytes 1
[2019-12-09 05:53] VITALS: BP 94/61
--- NOTE | 2019-12-09 07:55 | NUR ---
Opening Note Assumed pt care from NOC RN. Pt is a/ox4 with no s/s of distress or SOB. Pt is currently laying in bed with mild c/o abdominal pain 08/19; discussed pain relieving interventions. Discussed POC with pt and pending Nephrology consult. Safety measures maintained with call light within reach, bed in lowest position and side rails up. Will continue to monitor for changes.
[2019-12-09] MEDS: PANTOPRAZOLE 40 MG TAB PO SCH (08:52)
[2019-12-09 09:00] VITALS: BP 106/71
--- NOTE | 2019-12-09 09:57 | NUR ---
Dr Simmons at Bedside MD to see pt. Discussed POC with pt. New orders given, read back and verified. Will implement.
[2019-12-09] MEDS ORDERED: POTASSIUM CHL 20 Meq TABLET PO ONE (10:45)
[2019-12-09] MEDS: SODIUM CHLORIDE 0.9% 1,000 ML IV SCH ×2 (10:50→20:45)
[2019-12-09 13:00] VITALS: BP 95/48
[2019-12-09 15:54] LABS: Anion Gap 12 (5-15); BUN/Creatinine Ratio 31.1; Blood Urea Nitrogen 69 mg/dL (7-18); Calcium 9.5 mg/dL (8.5-10.1); Carbon Dioxide 22 mmol/L (21-32); Chloride 88 mmol/L (98-107); GFR African American 43 mL/min; GFR Non-African American 35 mL/min; Glucose 99 mg/dL (74-106); Potassium 3.3 mmol/L (3.5-5.1); Sodium 122 mmol/L (136-145)
[2019-12-09 17:00] VITALS: BP 107/65
[2019-12-09] MEDS: ACETAMINOPHEN 325 MG TAB PO PRN (17:47)
--- NOTE | 2019-12-09 20:45 | NUR ---
PATIENT EDUCATION GIVEN
[2019-12-09 22:00] VITALS: BP 124/67
[2019-12-10 05:00] VITALS: BP 128/78
[2019-12-10 05:38] LABS: Hematocrit 45.5 % (41.0-53.0); Hemoglobin 15.7 g/dL (13.5-17.5); Mean Corpuscular Hemoglobin 31.6 pg (28.0-32.0); Mean Corpuscular Hgb Conc. 34.5 g/dL (32.0-36.0); Mean Corpuscular Volume 91.8 fL (80.0-100.0); Platelet Count (auto) 293 10^3/uL (140-450); Red Blood Cells 4.96 10^6/uL (4.5-5.90); Red Cell Distribution Width 13.4 % (11.8-14.3)
[2019-12-10 05:48] LABS: Basophils % (manual) 0 (0.0-2.0); Blast Cells 0; Metamyelocytes % 0; Promyelocytes % 0; Reactive Lymphocytes 0
[2019-12-10 05:55] LABS: BUN/Creatinine Ratio 32.9; Calcium 9.1 mg/dL (8.5-10.1); Magnesium 2.4 mg/dL (1.6-2.6); Phosphorus 1.4 mg/dL (2.5-4.90); Potassium 3.6 mmol/L (3.5-5.1)
[2019-12-10 06:18] LABS: Band Neutrophils % (manual) 1; Eosinophils % (manual) 1 (0-7); Lymphocytes % (manual) 33 (10.0-50.0); Monocytes % (manual) 9 (0-12); Myelocytes % 2
[2019-12-10] MEDS: SODIUM CHLORIDE 0.9% 1,000 ML IV SCH ×3 (06:26→18:10)
[2019-12-10 08:00] VITALS: BP 120/70
[2019-12-10 09:00] VITALS: BP 120/70
[2019-12-10] MEDS ORDERED: SODIUM PHOSPHATES 24 MEQ in SODIUM CHL 0.9% 100 ML IV ONE (09:00)
--- NOTE | 2019-12-10 10:00 | NUR ---
Called Pharmacy for the Sodium Phosphate.
--- NOTE | 2019-12-10 10:10 | NUR ---
Dr. Iris I. at bedside. ordered NS at 125 ml/hr, remove Elliott catheter, BMP at 5:00 pm, if the Labs are fine, patient can be discharged at 6:00 pm.
--- NOTE | 2019-12-10 10:15 | NUR ---
Patient is uncomfortable that a female nurse has to remove his Elliott catheter. Explained to patient I will call a male nurse to remove his Elliott catheter. Spoke with JOSEE Brizuela if he can remove the patient's Elliott catheter.
[2019-12-10] MEDS: PANTOPRAZOLE 40 MG TAB PO SCH (10:23)
[2019-12-10] MEDS: ACETAMINOPHEN 325 MG TAB PO PRN (10:24)
--- NOTE | 2019-12-10 11:35 | NUR ---
Elliott catheter removed as ordered. About 500 ml of clear, yellowish urine emptied from the Elliott catheter bag. Urinal provided at bedside.
[2019-12-10 13:00] VITALS: BP 143/77
--- NOTE | 2019-12-10 14:35 | NUR ---
Patient stated he had an unprotected sex last month, he wants a STD test because it might be the cause of his acute renal failure.
--- NOTE | 2019-12-10 14:38 | NUR ---
Called Dr. Iris I. MD made aware patient wants an STD test; patient verbalized he had an unprotected sex last month and he's concern that it might caused his acute renal failure. Dr. Simmons said patient can have a STD test as outpatient. Informed the patient.
--- NOTE | 2019-12-10 14:40 | NUR ---
About 150 ml of light isaac urine in the urinal noted.
[2019-12-10] MEDS ORDERED: POTASSIUM PHOSPHATE 44 MEQ in D5W 5% 250 ML IV ONE (16:00)
[2019-12-10 17:00] VITALS: BP 138/64
--- NOTE | 2019-12-10 17:50 | NUR ---
Dr. Simmons, I. came over. made aware Dr. Lemos ordered Potassium Phosphate IV. Dr. Simmons said do not administer the Potassium Phosphate, patient's K level = 3.6, patient will be discharged today. Dr. Simmons said he will put in discharge orders.
--- NOTE | 2019-12-10 18:16 | NUR ---
Called Dr. Simmons that he has not put in the discharge orders yet, BMP results still pending. ordered to call him back for the BMP results.
[2019-12-10 18:22] LABS: BUN/Creatinine Ratio 23.6; Calcium 8.7 mg/dL (8.5-10.1); Potassium 3.6 mmol/L (3.5-5.1)
--- NOTE | 2019-12-10 18:40 | NUR ---
Called Dr. Iris I. again regarding current BMP results: K = 3.6, BUN = 30 H, Na = 130 L, Creatinine = 1.27. Dr. Simmons gave a telephone order to discharge patient home today.
[2019-12-10 18:53] VITALS: BP 138/64
--- NOTE | 2019-12-10 19:00 | NUR ---
Endorsed patient to night guard RN Kaitlin that patient is for discharge today as ordered. Discharge packet, discharge papers to be printed, IV line and Telemetry pack have to be removed, patient is aware of discharge orders for today including follow up appointment with Dr. Lemos for Nephrology, endorsed to Kaitlin.
--- NOTE | 2019-12-10 20:30 | NUR ---
DISCHARGE Discharge instructions given as ordered. Encourage to follow up with PMD as instructed. All questions and concerns addressed. Patient verbalized understanding. IV removed with catheter intact, pressure dressing applied. Telemetry unit returned to ICU. Patient taken to vehicle via wheelchair with all personal belongings, accompanied by staff and family member. No distress noted at time of departure.
== END 2019-12-10 20:30 | disposition home or self-care (01) | DRG 469 ==
LOC: ER 17:15 → EDBD 17:15 → TELE 17:16 → TELE-CENTR 12-09 01:00
PROVIDERS: ADMIT Nurse Practitioner; ATTEND Internal Medicine
DX: N17.0 Acute kidney failure with tubular necrosis (principal); E87.6 Hypokalemia; E87.1 Hypo-osmolality and hyponatremia; E66.9 Obesity, unspecified; I50.9 Heart failure, unspecified; E83.39 Other disorders of phosphorus metabolism; I95.9 Hypotension, unspecified; N18.2 Chronic kidney disease, stage 2 (mild); Z83.0 Family history of human immunodeficiency virus [HIV] disease; Z79.899 Other long term (current) drug therapy; Z68.24 Body mass index [BMI] 24.0-24.9, adult; I13.0 Hypertensive heart and chronic kidney disease with heart failure and stage 1 through stage 4 chronic kidney disease, or unspecified chronic kidney disease
CPT/HCPCS: 36415; 71045; 76775; 80048; 80053; 80307; 81001; 82550; 83036; 83735; 83880; 84100; 84443; 84484; 85007; 85027; 85379; 85610; 85730; 87081; 93005; 96360; 96361; G0378; J7060

== ENCOUNTER 2019-12-25 02:43 | Emergency (ER) | payer MEDICAID ==
[~2019-12-25] VITALS: Ht 172.7 cm; Wt 104.3 kg
[~2019-12-25 02:43] MED LIST changes: -AMOX500T86 PO; +FURO1TAB33 PO; +POTA10TA51 PO; +SUCR1TAB22 PO; -SUCR1TAB38 PO
[2019-12-25 03:57] LABS: Basophils # (auto) 0 10 ^3/uL (0-0.2); Basophils % (auto) 0.5 % (0.0-2.0); Eosinophils # (auto) 0 10 ^3/uL (0-0.8); Hematocrit 45.6 % (41.0-53.0); Lymphocytes # (auto) 1.8 10 ^3/uL (0.4-5.4); Lymphocytes % (auto) 22.6 % (10.0-50.0); Mean Corpuscular Hemoglobin 31.5 pg (28.0-32.0); Mean Corpuscular Volume 95.6 fL (80.0-100.0); Monocytes # (auto) 0.9 10 ^3/uL (0-1.3); Monocytes % (auto) 11.4 % (0.0-12.0); Neutrophils # (auto) 5.3 10 ^3/uL (1.6-8.6); Neutrophils % (auto) 65.5 % (37.0-80.0); Platelet Count (auto) 438 10^3/uL (140-450); Red Blood Cells 4.77 10^6/uL (4.5-5.90); Red Cell Distribution Width 13.8 % (11.8-14.3); White Blood Cell 8.1 10^3/uL (4.4-10.8)
[2019-12-25 04:25] LABS: Albumin 4.2 g/dL (3.4-5.0); Amylase 76 U/L (25-115); Anion Gap 11 (5-15); Blood Urea Nitrogen 21 mg/dL (7-18); Calcium 9.8 mg/dL (8.5-10.1); Carbon Dioxide 23 mmol/L (21-32); Chloride 97 mmol/L (98-107); Glucose 108 mg/dL (74-106); Lipase 137 U/L (73-393); Magnesium 2.4 mg/dL (1.6-2.6); Potassium 3.3 mmol/L (3.5-5.1); Sodium 131 mmol/L (136-145)
[2019-12-25 04:32] LABS: Alanine Aminotransferase 28 U/L (16-61); Alkaline Phosphatase 109 U/L (45-117); Aspartate Aminotransferase 17 U/L (15-37); BUN/Creatinine Ratio 14.5; Bilirubin, Total 0.5 mg/dL (0.2-1.0); GFR African American 70 mL/min; GFR Non-African American 58 mL/min; Total Protein 9.3 g/dL (6.4-8.2)
[2019-12-25 05:00] VITALS: BP 133/92
[2019-12-25] MEDS ORDERED: PANTOPRAZOLE 40 MG/10 ML VIAL INJ IV ONE (05:15)
[2019-12-25] MEDS ORDERED: KETOROLAC TROMETH 30 MG/ML 1ML VIAL IV ONE (05:15)
[2019-12-25] MEDS ORDERED: ONDANSETRON HCL 4 MG/2 ML VIAL IV ONE (05:15)
[2019-12-25] MEDS ORDERED: ALUM & MAG HYDROX-SIMETH LIQ(MAALOX) 30 ML PO ONE (05:15)
== END 2019-12-25 05:47 | disposition home or self-care (01) ==
LOC: ER 02:43
DX: R11.15 Cyclical vomiting syndrome unrelated to migraine (principal); K21.9 Gastro-esophageal reflux disease without esophagitis; N18.3 Chronic kidney disease, stage 3 (moderate); Z79.899 Other long term (current) drug therapy
CPT/HCPCS: 36415; 80053; 82150; 83690; 83735; 84484; 85025; 96374; 96375; 99284; C9113; J1885; J2405

== ENCOUNTER 2019-12-28 13:12 | Inpatient (IN) | payer MEDICAID ==
[~2019-12-28] VITALS: Ht 172.7 cm; Wt 90.0 kg
[2019-12-28] MEDS ORDERED: SODIUM CHLORIDE 0.9% 1,000 ML IV ONE ×3 (13:36→21:30)
[2019-12-28] MEDS ORDERED: ONDANSETRON HCL 4 MG/2 ML VIAL IV ONE (13:45)
[2019-12-28 15:39] LABS: Hematocrit 49.5 % (41.0-53.0); Hemoglobin 16.5 g/dL (13.5-17.5); Mean Corpuscular Hemoglobin 31.2 pg (28.0-32.0); Mean Corpuscular Hgb Conc. 33.4 g/dL (32.0-36.0); Mean Corpuscular Volume 93.5 fL (80.0-100.0); Platelet Count (auto) 653 10^3/uL (140-450); Red Cell Distribution Width 13.6 % (11.8-14.3); White Blood Cell 13.9 10^3/uL (4.4-10.8)
[2019-12-28 15:43] LABS: Albumin 3.9 g/dL (3.4-5.0); Anion Gap 11 (5-15); Blood Urea Nitrogen 35 mg/dL (7-18); Calcium 10.8 mg/dL (8.5-10.1); Carbon Dioxide 25 mmol/L (21-32); Chloride 88 mmol/L (98-107); Glucose 118 mg/dL (74-106); Potassium 3.2 mmol/L (3.5-5.1); Sodium 124 mmol/L (136-145)
[2019-12-28 15:49] LABS: Alanine Aminotransferase 25 U/L (16-61); Alkaline Phosphatase 137 U/L (45-117); Aspartate Aminotransferase 11 U/L (15-37); BUN/Creatinine Ratio 14.6; Bilirubin, Total 0.4 mg/dL (0.2-1.0); GFR African American 39 mL/min; GFR Non-African American 32 mL/min; Total Protein 9.8 g/dL (6.4-8.2)
[2019-12-28 15:54] LABS: Basophils % (manual) 0 (0.0-2.0); Blast Cells 0; Eosinophils % (manual) 0 (0-7); Promyelocytes % 0; Reactive Lymphocytes 0
[2019-12-28] MEDS ORDERED: metroNIDAZOLE 500MG/100ML 100 ML IV ONE (16:45)
[2019-12-28 18:07] LABS: Lymphocytes % (manual) 8 (10.0-50.0); Metamyelocytes % 2; Monocytes % (manual) 12 (0-12); Myelocytes % 1
[2019-12-28 18:08] LABS: Band Neutrophils % (manual) 12
[2019-12-28] MEDS ORDERED: SODIUM CHLORIDE 0.9% 3,000 ML IV ONE (18:30)
[2019-12-28] MEDS: PANTOPRAZOLE 40 MG/10 ML VIAL INJ IV SCH (22:30)
[2019-12-28 22:39] LABS: Urine Bacteria FEW /hpf (None Seen); Urine Blood Negative /uL (Negative); Urine Hyaline Cast MOD /lpf (0 - 2); Urine Mucus FEW (None Seen); Urine Specific Gravity 1.026 (1.001-1.035); Urine WBC 1 /hpf (0 - 3)
[2019-12-28 23:14] LABS: Alcohol, Urine < 3.0 mg/dL (0-10); Amphetamine Screen, Urine NEGATIVE (NEGATIVE); Barbiturate Scree,Urine NEGATIVE (NEGATIVE); Benzodiazephine Screen, Urine NEGATIVE (NEGATIVE); Cannabinoid Screen, Urine POSITIVE (NEGATIVE); Cocaine Screen, Urine NEGATIVE (NEGATIVE); Opiate Scree,Urine POSITIVE (NEGATIVE); Phencyclidine Screen, Urine NEGATIVE (NEGATIVE)
[2019-12-28] MEDS: MORPHINE SULF INJ 2 MG/ML SYRINGE 1ML IV PRN (23:14)
--- NOTE | 2019-12-28 23:15 | NUR ---
ADMITTED PATIENT FROM THE ER, AAOX4. NO DISTRESS NOTED. AFEBRILE. NAUSEA NOTED. COMPLAINED OF ABDOMINAL PAIN AND LEFT SCROTAL PAIN AND WILL MEDICATE PATIENT. NO SOB NOTED. ORIENTATION GIVEN. INTRODUCED MYSELF TO THE PATIENT. ROUTINE ADMISSION DONE. POCS DISCUSSED WITH PATIENT AND SHOWED UNDERSTANDING. BED KEPT ON LOWEST POSITION. SIDE RAILS UP. CALL LIGHT/TABLE IN REACH. KEPT COMFORTABLE.
[2019-12-28 23:30] VITALS: BP 142/75
[2019-12-29] LABS: BUN/Creatinine Ratio 17.3; Calcium 9.7 mg/dL (8.5-10.1); Potassium 3.3 mmol/L (3.5-5.1)
[2019-12-29] MEDS ORDERED: ONDANSETRON HCL 4 MG/2 ML VIAL IV PRN
[2019-12-29 05:00] VITALS: BP 141/84
[2019-12-29 05:37] LABS: Hemoglobin 14.7 g/dL (13.5-17.5)
[2019-12-29 05:40] LABS: Hematocrit 41.7 % (41.0-53.0); Mean Corpuscular Hemoglobin 32.7 pg (28.0-32.0); Mean Corpuscular Hgb Conc. 35.3 g/dL (32.0-36.0); Mean Corpuscular Volume 92.5 fL (80.0-100.0); Platelet Count (auto) 579 10^3/uL (140-450); Red Blood Cells 4.51 10^6/uL (4.5-5.90); Red Cell Distribution Width 13.2 % (11.8-14.3); White Blood Cell 10.2 10^3/uL (4.4-10.8)
[2019-12-29 05:54] LABS: INR 1.05 (0.9-1.15)
[2019-12-29 05:55] LABS: Basophils % (manual) 0 (0.0-2.0); Blast Cells 0; Eosinophils % (manual) 0 (0-7); Metamyelocytes % 0; Myelocytes % 0; Promyelocytes % 0
[2019-12-29 05:56] LABS: Calcium 9.3 mg/dL (8.5-10.1)
[2019-12-29 06:16] LABS: Potassium 2.8 mmol/L (3.5-5.1)
--- NOTE | 2019-12-29 06:28 | NUR ---
K= 2.8 PAGED . AWAITING CALL BACK.
[2019-12-29 06:49] LABS: Band Neutrophils % (manual) 4; Lymphocytes % (manual) 23 (10.0-50.0); Monocytes % (manual) 13 (0-12); Reactive Lymphocytes 1
--- NOTE | 2019-12-29 07:19 | NUR ---
ENDORSED TO AM RN, RE: K= 2.8 AWAITING CALL BACK FROM .
--- NOTE | 2019-12-29 07:45 | NUR ---
Opening Shift Note Assumed care of patient, awake, alert, and oriented. No S/S of distress/SOB or pain. Bed in lowest/locked position, bed rails up x2, call light within reach. Instructed on POC and to call for assist PRN. Will continue to monitor for changes Q1hr and PRN.
[2019-12-29] MEDS: PANTOPRAZOLE 40 MG/10 ML VIAL INJ IV SCH (08:50)
--- NOTE | 2019-12-29 09:00 | NUR ---
PAGED K= 2.8 PAGED . AWAITING CALL BACK.
--- NOTE | 2019-12-29 09:13 | NUR ---
CALL BACK Harman MCKINLEY CALLED BACK RE: K 2.8. NEW ORDERS RECEIVED/WILL CARRY OUT. WILL CONTINUE TO MONITOR
[2019-12-29] MEDS ORDERED: POTASSIUM CHL 20 Meq TABLET PO ONE (09:15)
[2019-12-29] MEDS ORDERED: SODIUM CHLORIDE 0.9% 1,000 ML IV SCH (09:15)
--- NOTE | 2019-12-29 09:20 | NUR ---
MD ROUNDS DR CARPENTER AT BEDSIDE. NEW ORDERS RECEIVED/WILL CARRY OUT. WILL CONTINUE TO MONITOR
[2019-12-29 09:24] VITALS: BP 135/92
[2019-12-29] MEDS: POTASSIUM CHL 20MEQ/100ML 100 ML IV SCH ×2 (09:35→12:39)
[2019-12-29] MEDS ORDERED: PANTOPRAZOLE 40 MG TAB PO SCH (10:00)
[2019-12-29] MEDS: SUCRALFATE 1 GM/10 ML ORAL SUSP PO SCH ×2 (11:50→16:43)
[2019-12-29 13:00] VITALS: BP 129/75
[2019-12-29] MEDS: MORPHINE SULF INJ 2 MG/ML SYRINGE 1ML IV PRN (15:03)
[2019-12-29] MEDS ORDERED: PANT40TA2 PO (16:53)
[2019-12-29] MEDS ORDERED: SUCR1TAB22 PO (16:53)
[2019-12-29] MEDS ORDERED: METO25TA5 PO (16:53)
[2019-12-29 17:00] VITALS: BP 136/90
[2019-12-29] MEDS ORDERED: METOPROLOL TARTRATE 25 MG TAB PO SCH (17:00)
--- NOTE | 2019-12-29 17:14 | NUR ---
DR CARPENTER SPOKE WITH DR CARPENTER RE: CLEAR FOR D/C. PER DR CARPENTER; IF PATIENT TOLERATES SOFT DIET DINNER, PATIENT CAN BE CLEARED. WILL CONTINUE TO MONITOR
--- NOTE | 2019-12-29 18:36 | NUR ---
DISCHARGE PATIENT AWAITING LAB DRAW AND RESULTS FOR DISCHARGE
[2019-12-29 19:47] LABS: Calcium 8.6 mg/dL (8.5-10.1); Potassium 3.1 mmol/L (3.5-5.1)
[2019-12-29 19:50] LABS: BUN/Creatinine Ratio 14.9
--- NOTE | 2019-12-29 20:30 | NUR ---
Spoke with Dr. Rocky Bhatia Dr. returned phone call pertaining to patient potassium level. Told DrIraj potassium level is currently 3.1. Dr. Bhatia aware and provided orders for potassium. Dr. Bhatia gave orders to discharged patient after providing potassium as prescribed.
[2019-12-29] MEDS ORDERED: POTASSIUM EFFERVESENT TAB 25 MEQ PO ONE (20:45)
--- NOTE | 2019-12-29 21:21 | NUR ---
Patient Discharged and Left Unit D/c'd patient IV. IV catheter intact and patient tolerated well. D/c'd tele monitor. Patient took all belongings with him. Patient ambulated with no s/s of distress or SOB. Patient was escorted to elevators safely.
== END 2019-12-29 21:21 | disposition home or self-care (01) | DRG 249 ==
LOC: ER 13:12 → TELE 13:13 → TELE-WESTW 23:02
PROVIDERS: ADMIT Internal Medicine; ATTEND Internal Medicine
DX: K52.9 Noninfective gastroenteritis and colitis, unspecified (principal); E86.0 Dehydration; E87.1 Hypo-osmolality and hyponatremia; N18.9 Chronic kidney disease, unspecified; E87.6 Hypokalemia; I13.0 Hypertensive heart and chronic kidney disease with heart failure and stage 1 through stage 4 chronic kidney disease, or unspecified chronic kidney disease; I50.9 Heart failure, unspecified; K29.70 Gastritis, unspecified, without bleeding; K40.90 Unilateral inguinal hernia, without obstruction or gangrene, not specified as recurrent; N17.9 Acute kidney failure, unspecified; Z91.19 Patient's noncompliance with other medical treatment and regimen; K21.9 Gastro-esophageal reflux disease without esophagitis; Z83.0 Family history of human immunodeficiency virus [HIV] disease
CPT/HCPCS: 36415; 71045; 74176; 76775; 78226; 80048; 80053; 80307; 81001; 83880; 84484; 85007; 85027; 85610; 85730; C9113; G0378; J2405; J3480; J3490

== ENCOUNTER 2021-06-28 08:11 | Emergency (ER) | payer MEDICAID ==
[~2021-06-28] VITALS: Ht 172.7 cm; Wt 127.0 kg
[~2021-06-28 08:11] MED LIST changes: -FURO1TAB33 PO; -LOSA25TA38 PO; -METO25TA36 PO; +METO25TA5 PO; -POTA10TA51 PO
[2021-06-28] MEDS ORDERED: PROCHLORPERAZINE EDISYLATE 5 MG/ML 2ML VIAL IV ONE (08:45)
[2021-06-28] MEDS ORDERED: MORPHINE SULFATE 4 MG/ML SYR/VIAL IV ONE (08:45)
[2021-06-28] MEDS ORDERED: SODIUM CHLORIDE 0.9% 1,000 ML IV ONE ×2 (09:45)
[2021-06-28 10:29] LABS: Basophils # (auto) 0 10 ^3/uL (0-0.2); Basophils % (auto) 0.4 % (0.0-2.0); Eosinophils # (auto) 0 10 ^3/uL (0-0.8); Hematocrit 48.4 % (41.0-53.0); Hemoglobin 16.1 g/dL (13.5-17.5); Lymphocytes # (auto) 1.1 10 ^3/uL (0.4-5.4); Lymphocytes % (auto) 8.8 % (10.0-50.0); Mean Corpuscular Hemoglobin 30.3 pg (28.0-32.0); Mean Corpuscular Hgb Conc. 33.3 g/dL (32.0-36.0); Mean Corpuscular Volume 90.8 fL (80.0-100.0); Monocytes # (auto) 1.1 10 ^3/uL (0-1.3); Monocytes % (auto) 8.8 % (0.0-12.0); Neutrophils # (auto) 9.9 10 ^3/uL (1.6-8.6); Nucleated Red Blood Cells % 0.1 %; Red Blood Cells 5.33 10^6/uL (4.5-5.90); Red Cell Distribution Width 13.5 % (11.8-14.3)
[2021-06-28 10:57] LABS: Albumin 4.3 g/dL (3.4-5.0); Calcium 9.6 mg/dL (8.5-10.1); Potassium 3.4 mmol/L (3.5-5.1)
[2021-06-28 11:01] LABS: BUN/Creatinine Ratio 23.3; Bilirubin, Total 0.7 mg/dL (0.2-1.0); Total Protein 9.2 g/dL (6.4-8.2)
[2021-06-28] MEDS ORDERED: PANTOPRAZOLE 40 MG/10 ML VIAL INJ IV ONE (11:30)
[2021-06-28 11:41] LABS: Amphetamine Screen, Urine NEGATIVE (NEGATIVE); Barbiturate Scree,Urine NEGATIVE (NEGATIVE); Benzodiazephine Screen, Urine NEGATIVE (NEGATIVE); Cannabinoid Screen, Urine POSITIVE (NEGATIVE); Cocaine Screen, Urine NEGATIVE (NEGATIVE); Opiate Scree,Urine POSITIVE (NEGATIVE); Phencyclidine Screen, Urine NEGATIVE (NEGATIVE)
[2021-06-28 12:01] VITALS: BP 136/86
== END 2021-06-28 13:13 | disposition home or self-care (01) ==
LOC: ER 08:11 → EDBD 08:11 → ER 13:13
DX: R10.84 Generalized abdominal pain (principal); F12.10 Cannabis abuse, uncomplicated; R11.2 Nausea with vomiting, unspecified
CPT/HCPCS: 36415; 74176; 80053; 80307; 85025; 96361; 96374; 96375; 99285; C9113; J0780; J2270; J7030